=== PATIENT | female | born 1985 | race Caucasian/White ===

== ENCOUNTER 2018-12-29 09:03 | Outpatient (CLI) | payer MEDICAID | END 2018-12-29 23:59 | disposition home or self-care (01) | LOC: LAB.N 09:03 | PROVIDERS: ATTEND Nurse Practitioner Gerontology | DX: E03.9 Hypothyroidism, unspecified (principal) | CPT/HCPCS: 36415; 84443 ==

== ENCOUNTER 2019-02-22 14:00 | Outpatient (CLI) | payer MEDICAID ==
[2019-02-22 18:36] LABS: BILIRUBIN,URINE NEGATIVE (NEGATIVE); GLUCOSE, URINE (UA) NEGATIVE (NEGATIVE); KETONES,URINE (UA) NEGATIVE (NEGATIVE); LEUKOCYTE ESTERASE, URINE NEGATIVE (NEGATIVE); NITRITE,URINE NEGATIVE (NEGATIVE); OCCULT BLOOD,URINE NEGATIVE (NEGATIVE); PH,URINE 6.5 PH (5.0-7.5); PROTEIN,URINE NEGATIVE (NEGATIVE); UROBILINOGEN,URINE 0.2 (NORMAL) E.U./dL (NORMAL)
[2019-02-22 18:39] LABS: CLARITY,URINE CLEAR (CLEAR)
== END 2019-02-22 23:59 | disposition home or self-care (01) ==
LOC: LAB.N 14:00
PROVIDERS: ATTEND Internal Medicine Rheumatology
DX: R76.8 Other specified abnormal immunological findings in serum (principal)
CPT/HCPCS: 81001; 81003; 87086

== ENCOUNTER 2019-05-03 13:18 | Emergency (ER) | payer MEDICAID ==
--- NOTE | 2019-05-03 13:58 | ED Physician Documentation ---
PD HPI DYSPNEA - Stated complaint Stated Complaint: SOA/COUGH - Chief complaint Chief Complaint: Resp - History obtained from History obtained from: Patient (Sick for 3 days with initially non-productive now with some yellow sputum. Feels SOA refugio when flat and wheezy. No fevers, does not smoke.) - Additional information Additional information: Came up from [place] p swab d/t sx Review of Systems Constitutional: denies: Fever, Chills Nose: reports: Rhinorrhea / runny nose Throat: denies: Sore throat Respiratory: reports: Dyspnea, Cough, Wheezing GI: denies: Abdominal Pain PD PAST MEDICAL HISTORY - Past Medical History Past Medical History: Yes Cardiovascular: None Respiratory: Asthma Neuro: None Endocrine/Autoimmune: None GI: None STOREROOM KEEPER: None : None HEENT: None Psych: None Musculoskeletal: None Derm: None Other Past Medical History: [facility] [place] - Past Surgical History Past Surgical History: Yes HEENT: Tracheostomy - Present Medications Home Medications: Ambulatory Orders Medication Instructions Recorded Confirmed predniSONE [Deltasone] 20 mg PO [id number] #[id number] tab 05/03/19 - Allergies Allergies/Adverse Reactions: Allergies Allergy/AdvReac Type Severity Reaction Status Date / Time No Known Drug Allergies Allergy Verified 05/03/19 14:04 - Social History Does the pt smoke?: No Smoking Status: Never smoker - Immunizations Immunizations are current?: Yes - POLST Patient has POLST: No PD ED PE NORMAL - Vitals Vital signs reviewed: Yes - General General: Alert and oriented X 3, No acute distress - HEENT HEENT: PERRL, EOMI, Pharynx benign - Neck Neck: Supple, no meningeal sign, No bony TTP - Cardiac Cardiac: RRR, No murmur - Respiratory Respiratory: No respiratory distress, Clear bilaterally - Abdomen Abdomen: Soft, Non tender - Back Back: No CVA TTP, No spinal TTP - Derm Derm: No rash - Neuro Neuro: Alert and oriented X 3, Normal speech - Psych Psych: Normal mood, Normal affect Results - Vitals Vitals: Vital Signs - 24 hr 05/03/19 13:27 Temperature 37.1 C Heart Rate 98 Respiratory 16 Rate Blood Pressure 137/95 H O2 Saturation 98 Oxygen O2 Source Room air - Rads (name of study) 1v cxr Radiology: EMP read contemporaneously (normal) Departure - Departure Disposition: 01 Home, Self Care Clinical Impression: Acute viral bronchitis Condition: Good Record reviewed to determine appropriate education?: Yes Instructions: ED Upper Resp Infec No Abx Tx Prescriptions: predniSONE [Deltasone] 20 mg PO [id number] #21 tab Comments: Your chest x-ray is normal, there is no evidence of pneumonia. Coronavirus is not impossible but I think more of a kind of standard low-grade viral bronchitis is more likely. I think the steroids will help with your shortness of breath. Follow-up with your doctor in a week if not better. Return for new or worsening symptoms or for high fevers.
--- NOTE | 2019-05-03 14:13 | XRAY Report ---
Reason: cough Procedure Date: 05/03/2019 Accession Number: [id number] / [id number] Procedure: XR - Chest 1 View X-Ray CPT Code: 53232 Final Report FULL RESULT: EXAM: CHEST RADIOGRAPHY EXAM DATE: 05/03/2019 02:05 PM. CLINICAL HISTORY: Cough. COMPARISON: None. TECHNIQUE: 1 view. FINDINGS: Lungs/Pleura: No focal opacities evident. No pleural effusion. No pneumothorax. Mediastinum: Within exam limitations, the cardiomediastinal contour is normal. Other: None. IMPRESSION: Normal single view chest. RADIA
[2019-05-03 14:45] VITALS: BP 146/96
== END 2019-05-03 14:45 | disposition home or self-care (01) ==
LOC: ED 13:18
DX: J20.8 Acute bronchitis due to other specified organisms (principal)
CPT/HCPCS: 71045; 99283

== ENCOUNTER 2019-05-03 14:07 | Outpatient (CLI) | payer MEDICAID | END 2019-05-03 14:08 | disposition home or self-care (01) | LOC: COV 14:07 | PROVIDERS: ATTEND Family Medicine | DX: R05 Cough (principal) ==

== ENCOUNTER 2019-06-14 14:47 | Outpatient (CLI) | payer MEDICAID | END 2019-06-14 23:59 | disposition home or self-care (01) | LOC: LAB.WCP 14:47 | PROVIDERS: ATTEND Physician Assistant Medical | DX: E03.9 Hypothyroidism, unspecified (principal) | CPT/HCPCS: 36415; 84443 ==

== ENCOUNTER 2019-09-20 07:00 | Outpatient (CLI) | payer MEDICAID | END 2019-09-20 23:59 | disposition home or self-care (01) | LOC: LAB.R 07:00 | PROVIDERS: ATTEND Nurse Practitioner Family | DX: J06.9 Acute upper respiratory infection, unspecified (principal) ==